=== PATIENT | male | born 1990 | race Caucasian/White ===

== ENCOUNTER 2018-02-22 23:08 | Emergency (ER) | payer BC, OTHER ==
[2018-02-22 23:16] VITALS: BP 162/97
[2018-02-22] MEDS ORDERED: Ondansetron 4 MG/2 ML SDV IVPUSH ONE (23:30)
[2018-02-22] MEDS ORDERED: fentaNYL 100 MCG/2 ML SDV IVPUSH ONE (23:30)
--- NOTE | 2018-02-22 23:34 | EDM.PDOC ---
ED HPI GENERAL MEDICAL PROBLEM - General Chief Complaint: Abdominal Pain Stated Complaint: ABDOMINAL PAIN Time Seen by Provider: 02/22/18 23:20 Source of Information: Reports: Patient, Family History Limitations: Reports: No Limitations - History of Present Illness INITIAL COMMENTS - FREE TEXT/NARRATIVE: 27-year-old male with intense lower left abdominal pain for the past 12-24 hours. It started with gastroenteritis with frequent diarrhea and nausea, but now is localized to intense spasm and pain in the left lower quadrant. No fevers or chills. He's been exposed to a lot of gastrointestinal illness in the family. I saw him 2 years ago in the emergency room for the exact same presentation, he responded to medication and his workup was negative at that time and it has not happened since. Denies any shortness of breath or cough, no recent trauma, denies drug use, drinks socially. He is not a smoker. Location: Reports: Abdomen Quality: Reports: Sharp, Stabbing Severity: Moderate Improves with: Reports: Other (Seems to be better after a bowel movement or vomiting, he feels better when he is "empty".) Associated Symptoms: Reports: No Other Symptoms left ABD Pain Score (Numeric/FACES): 10 - Related Data Allergies Allergy/AdvReac Type Severity Reaction Status Date / Time codeine Allergy Cannot Verified 02/22/18 23:17 Remember Home Meds: Home Meds NK [No Known Home Meds] 11/21/15 [History] Past Medical History - Past Health History Medical/Surgical History: Denies Medical/Surgical History Dermatologic History: Reports: Other (See Below) Other Dermatologic History: skin graft on back of knee Social & Family History - Tobacco Use Smoking Status *Q: Current Every Day Smoker Years of Tobacco use: 13 Packs/Tins Daily: 0.5 Used Tobacco, but Quit: No - Caffeine Use Caffeine Use: Reports: Soda - Alcohol Use Days Per Week of Alcohol Use: 2 Number of Drinks Per Day: 4 Total Drinks Per Week: 8 - Recreational Drug Use Recreational Drug Use: No ED ROS GENERAL - Review of Systems Review Of Systems: See Below Constitutional: Reports: Malaise. Denies: Fever, Chills HEENT: Reports: No Symptoms Respiratory: Denies: Shortness of Breath Cardiovascular: Denies: Chest Pain GI/Abdominal: Reports: Abdominal Pain, Diarrhea, Nausea, Vomiting : Reports: No Symptoms Skin: Reports: No Symptoms Neurological: Reports: No Symptoms ED EXAM, GI/ABD - Physical Exam Exam: See Below Exam Limited By: No Limitations General Appearance: Alert, Moderate Distress Eyes: Bilateral: Normal Appearance (No jaundice) Respiratory/Chest: No Respiratory Distress, Lungs Clear GI/Abdominal Exam: Normal Bowel Sounds, Soft, Tender (Reacts with tenderness to palpation along the left lower abdomen with moderate guarding but no rebound) Neurological: Alert, Oriented Psychiatric: Anxious Skin Exam: Warm, Dry Course - Vital Signs Last Recorded V/S: Last Vital Signs Temp 97.8 F 02/22/18 23:20 Pulse 79 02/22/18 23:20 Resp 18 02/22/18 23:20 BP 162/97 H 02/22/18 23:20 Pulse Ox 99 02/22/18 23:20 - Orders/Labs/Meds Orders: Active Orders 24 hr Category Date Time Status Abdomen Pelvis w Cont [CT] Stat Exams 02/23/18 00:21 Ordered Labs: Laboratory Tests 02/22/18 02/22/18 Range/Units 23:37 23:37 WBC 12.5 H (4.5-11.0) K/uL RBC 5.36 (4.30-5.90) M/uL Hgb 15.3 H (12.0-15.0) g/dL Hct 43.7 (40.0-54.0) % MCV 82 (80-98) fL MCH 29 (27-31) pg MCHC 35 (32-36) % Plt Count 346 (150-400) K/uL Neut % (Auto) 83 H (36-66) % Lymph % (Auto) 9 L (24-44) % [place] % (Auto) 8 H (2-6) % Eos % (Auto) 0 L (2-4) % Baso % (Auto) 0 (0-1) % ESR 8 (0-20) mm/hr Sodium 139 L (140-148) mmol/L Potassium 4.1 (3.6-5.2) mmol/L Chloride 100 (100-108) mmol/L Carbon Dioxide 28 (21-32) mmol/L Anion Gap 15.1 H (5.0-14.0) mmol/L BUN 13 (7-18) mg/dL Creatinine 1.0 (0.8-1.3) mg/dL Est Cr Clr Drug Dosing 115.58 mL/min Estimated GFR (MDRD) > 60 (>60) Glucose 123 H (74-106) mg/dL Calcium 8.8 (8.5-10.1) mg/dL Total Bilirubin 0.5 (0.2-1.0) mg/dL AST 19 (15-37) U/L ALT 28 (12-78) U/L Alkaline Phosphatase 70 (46-116) U/L Total Protein 7.7 (6.4-8.2) g/dL Albumin 4.2 (3.4-5.0) g/dL Globulin 3.5 (2.3-3.5) g/dL Albumin/Globulin Ratio 1.2 (1.2-2.2) Amylase 58 (25-115) U/L Lipase 139 (73-393) U/L Meds: Medications Discontinued Medications Generic Name Dose Route Start Last Admin Trade Name Freq PRN Reason Stop Dose Admin Fentanyl 100 mcg 02/22/18 23:30 02/22/18 23:37 Sublimaze IVPUSH 02/22/18 23:31 100 mcg ONETIME ONE Administration Sodium Chloride 1,000 mls @ 1,000 mls/hr 02/22/18 23:45 02/22/18 23:37 Normal Saline IV 1,000 mls/hr ASDIRECTED KILEY Administration Sodium Chloride 80 mls @ 3.5 mls/sec 02/23/18 00:40 02/23/18 00:41 Normal Saline IV 02/23/18 00:41 3.5 mls/sec ONETIME ONE Administration Iopamidol 100 ml 02/23/18 00:45 02/23/18 00:41 Isovue-300 (61%) IV 100 ml . DIRECTED KILEY Administration Ketorolac Tromethamine 30 mg 02/23/18 00:55 02/23/18 01:00 Toradol IVPUSH 02/23/18 00:56 30 mg ONETIME ONE Administration Ondansetron HCl 4 mg 02/22/18 23:30 02/22/18 23:36 Zofran IVPUSH 02/22/18 23:31 4 mg ONETIME ONE Administration Sodium Chloride 10 ml 02/23/18 00:40 02/23/18 00:41 Saline Flush FLUSH 02/23/18 00:41 10 ml ONETIME ONE Administration - Re-Assessments/Exams Free Text/Narrative Re-Assessment/Exam: 02/22/18 23:33 An IV will be started and the patient will be given 4 mg of Zofran, 100 g of fentanyl and a liter of normal saline. CBC, CMP, amylase and lipase will be obtained as well as a sedimentation rate. 02/23/18 01:43 Labs were all normal. Sedimentation rate was normal. CT scan with IV contrast was normal. While waiting for the CT results he was given 30 mg of IV Toradol because his pain was recurring. He was discharged with 10 doses of 1 mg Ativan to calm him down and take for bowel spasm. Departure - Departure Time of Disposition: 01:53 Disposition: Home, Self-Care 01 Condition: Good Clinical Impression: Gastroenteritis Abdominal pain Qualifiers: Abdominal location: left lower quadrant Qualified Code(s): R10.32 - Left lower quadrant pain - Discharge Information Instructions: Abdominal Pain, Adult, [id number] Referrals: PCP,None [Primary Care Provider] - Forms: ED Department Discharge Care Plan Goals: Just liquids for the next 12-24 hours until pain resolves. Use Ativan for bowel spasm if needed, as directed. - My Orders Last 24 Hours: My Active Orders 02/23/18 00:21 Abdomen Pelvis w Cont [CT] Stat - Assessment/Plan Last 24 Hours: My Active Orders 02/23/18 00:21 Abdomen Pelvis w Cont [CT] Stat
[2018-02-22] MEDS ORDERED: Sodium Chloride 0.9% 1,000 ML IV SCH (23:45)
[2018-02-23] MEDS ORDERED: Sodium Chloride 0.9% 80 ML IV ONE (00:40)
[2018-02-23] MEDS ORDERED: Sodium Chloride 0.9% 10 ML Syringe FLUSH ONE (00:40)
[2018-02-23] MEDS ORDERED: Iopamidol 612 MG/ML 100 ML Bottle IV SCH (00:45)
[2018-02-23] MEDS ORDERED: Ketorolac 30 MG/ML SDV IVPUSH ONE (00:55)
== END 2018-02-23 01:52 | disposition home or self-care (01) ==
LOC: JP.ED 23:08
DX: K52.9 Noninfective gastroenteritis and colitis, unspecified (principal); F17.210 Nicotine dependence, cigarettes, uncomplicated; Z88.5 Allergy status to narcotic agent
CPT/HCPCS: 36415; 74177; 80053; 82150; 83690; 85025; 85651; 96361; 96374; 96375; 99284; J1885; J2405; J3010; J7030; J7040; J7050; Q9967

== ENCOUNTER 2018-02-24 20:47 | Inpatient (IN) | payer OTHER ==
[2018-02-24] MEDS ORDERED: fentaNYL 100 MCG/2 ML SDV IVPUSH ONE (21:55)
[2018-02-24] MEDS ORDERED: Lactated Ringers 1,000 ML IV ONE ×2 (21:55→23:50)
[2018-02-24] MEDS ORDERED: Sodium Chloride 0.9% 10 ML Syringe FLUSH PRN (21:59)
[2018-02-24] MEDS ORDERED: Ondansetron 4 MG/2 ML SDV IVPUSH ONE (22:00)
--- NOTE | 2018-02-24 22:06 | EDM.PDOC ---
ED HPI GENERAL MEDICAL PROBLEM - General Chief Complaint: Abdominal Pain Stated Complaint: ABDOMINAL PAIN Time Seen by Provider: 02/24/18 22:03 Source of Information: Reports: Patient, Family, RN Notes Reviewed History Limitations: Reports: No Limitations - History of Present Illness INITIAL COMMENTS - FREE TEXT/NARRATIVE: 27-year-old gentleman presents to the emergency department today complaint of nausea vomiting and abdominal pain. He was evaluated in the emergency department 2 days ago for similar complaints workup at that time included blood work and CAT scan which were unrevealing to an etiology, etiology was thought to be gastroenteritis as the family has had similar illness however most everybody in the family has now recovered. He was discharged with Ativan for nausea and vomiting symptoms he is taken all that medication has vomited today, continues to have small amount of mucousy loose stools with flatus. No fevers no shortness of breath or chest pain Middle Abdomen Pain Score (Numeric/FACES): 7 - Related Data Allergies Allergy/AdvReac Type Severity Reaction Status Date / Time codeine Allergy Cannot Verified 02/22/18 23:17 Remember Home Meds: Home Meds LORazepam [Ativan] 0.5 mg PO Q6H PRN 02/24/18 [History] Past Medical History Dermatologic History: Reports: Other (See Below) Other Dermatologic History: skin graft on back of knee Social & Family History - Tobacco Use Smoking Status *Q: Never Smoker - Caffeine Use Caffeine Use: Reports: Soda - Alcohol Use Days Per Week of Alcohol Use: 2 Number of Drinks Per Day: 3 Total Drinks Per Week: 6 - Recreational Drug Use Recreational Drug Use: No ED ROS GENERAL - Review of Systems Review Of Systems: See Below Constitutional: Reports: Weakness. Denies: Fever, Chills HEENT: Reports: No Symptoms Respiratory: Reports: No Symptoms Cardiovascular: Reports: No Symptoms GI/Abdominal: Reports: Abdominal Pain, Diarrhea, Flatus, Nausea, Vomiting : Reports: No Symptoms Musculoskeletal: Reports: No Symptoms Skin: Reports: No Symptoms Neurological: Reports: No Symptoms ED EXAM, GI/ABD - Physical Exam Exam: See Below Text/Narrative:: General: Male, ill-appearing but not in distress, alert and oriented x3 HEENT: head is atraumatic normocephalic, eyes pupils equal round reactive to light, sclera clear no conjunctivitis appreciated. Ears tympanic membranes clear and de la cruz landmarks and light reflex are present bilaterally canals are clear. Nose no septal deviation, nares are clear, no blood present. Mouth mucosa is moist and pink no erythema or exudate noted in soft palate, tongue is midline uvula is midline, dentition is intact. Neck: Supple no thyromegaly no tracheal deviation. Nodes: Cervical nodes subclavicular nodes nontender no palpable lymphadenopathy noted. Lungs: clear to auscultation bilaterally with symmetrical respirations, no adventitious noise appreciated. CV: Regular rate and rhythm S1 and S2 appreciated no murmurs rubs or gallops noted. Abdomen: Soft, generalized tenderness to palpation, no palpable masses or organomegaly appreciated, no distention mild guarding, bowel sounds are present, . Neuro: Cranial nerves II through XII grossly intact Skin: Warm and dry, intact Extremities: No lower extremity edema appreciated, pedal pulse is +2. Course - Vital Signs Last Recorded V/S: Last Vital Signs Temp 99.7 F 02/24/18 21:22 Pulse 87 02/25/18 00:25 Resp 16 02/24/18 23:00 BP 108/56 L 02/25/18 00:25 Pulse Ox 97 02/25/18 00:25 - Orders/Labs/Meds Orders: Active Orders 24 hr Category Date Time Status Peripheral IV Care [RC] . DIRECTED Care 02/24/18 22:00 Active Abdomen 2V AP Flat Upright [CR] Stat Exams 02/24/18 21:59 Taken Abdomen Pelvis w Cont [CT] Stat Exams 02/25/18 00:01 Taken CULTURE STOOL + SHIGATOX [RM] Stat Lab 02/24/18 22:10 Ordered DRUG SCREEN, URINE [URCHEM] Stat Lab 02/24/18 23:40 Ordered UA W/MICROSCOPIC [URIN] Urgent Lab 02/24/18 23:40 Ordered WBC, STOOL [OP] Stat Lab 02/24/18 21:56 Ordered Sodium Chloride 0.9% [Saline Flush] Med 02/24/18 21:59 Active 10 ml FLUSH ASDIRECTED PRN Peripheral IV Insertion Adult [OM.PC] Urgent Oth 02/24/18 21:59 Ordered Medication Orders Sodium Chloride (Saline Flush) 10 ml FLUSH ASDIRECTED PRN PRN Reason: Keep Vein Open Last Admin: 02/24/18 22:38 Dose: 10 ml Labs: Laboratory Tests 02/24/18 02/24/18 02/24/18 Range/Units 22:11 22:11 22:11 WBC 22.1 H (4.5-11.0) K/uL RBC 5.15 (4.30-5.90) M/uL Hgb 14.5 (12.0-15.0) g/dL Hct 42.3 (40.0-54.0) % MCV 82 (80-98) fL MCH 28 (27-31) pg MCHC 34 (32-36) % Plt Count 319 (150-400) K/uL Neut % (Auto) 80 H (36-66) % Lymph % (Auto) 7 L (24-44) % [place] % (Auto) 13 H (2-6) % Eos % (Auto) 0 L (2-4) % Baso % (Auto) 0 (0-1) % Sodium 136 L (140-148) mmol/L Potassium 3.9 (3.6-5.2) mmol/L Chloride 98 L (100-108) mmol/L Carbon Dioxide 28 (21-32) mmol/L Anion Gap 13.9 (5.0-14.0) mmol/L BUN 8 (7-18) mg/dL Creatinine 1.0 (0.8-1.3) mg/dL Est Cr Clr Drug Dosing 115.58 mL/min Estimated GFR (MDRD) > 60 (>60) Glucose 103 (74-106) mg/dL Lactic Acid (0.4-2.0) mmol/L Calcium 8.7 (8.5-10.1) mg/dL Total Bilirubin 0.9 D (0.2-1.0) mg/dL AST 11 L (15-37) U/L ALT 20 (12-78) U/L Alkaline Phosphatase 62 (46-116) U/L Total Protein 7.2 (6.4-8.2) g/dL Albumin 3.5 (3.4-5.0) g/dL Globulin 3.7 H (2.3-3.5) g/dL Albumin/Globulin Ratio 1.0 L (1.2-2.2) Lipase 133 (73-393) U/L Urine Color Urine Appearance Urine pH (4.5-8.0) Ur Specific Spencer (1.008-1.030) Urine Protein (NEGATIVE) mg/dL Urine Glucose (UA) (NEGATIVE) mg/dL Urine Ketones (NEGATIVE) mg/dL Urine Occult Blood (NEGATIVE) Urine Nitrite (NEGAITVE) Urine Bilirubin (NEGATIVE) Urine Urobilinogen (NORMAL) mg/dL Ur Leukocyte Esterase (NEGATIVE) Urine RBC (0-5) Urine WBC (0-5) Ur Epithelial Cells Amorphous Sediment Urine Bacteria Urine Mucus Urine Opiates Screen (NEGATIVE) Ur Oxycodone Screen (NEGATIVE) Urine Methadone Screen (NEGATIVE) Ur Propoxyphene Screen (NEGATIVE) Ur Barbiturates Screen (NEGATIVE) Ur Tricyclics Screen (NEGATIVE) Ur Phencyclidine Scrn (NEGATIVE) Ur Amphetamine Screen (NEGATIVE) U Methamphetamines Scrn (NEGATIVE) Urine MDMA Screen (NEGATIVE) U Benzodiazepines Scrn (NEGATIVE) U Cocaine Metab Screen (NEGATIVE) U Marijuana (THC) Screen (NEGATIVE) 02/24/18 02/24/18 02/24/18 Range/Units 22:11 23:40 23:40 WBC (4.5-11.0) K/uL RBC (4.30-5.90) M/uL Hgb (12.0-15.0) g/dL Hct (40.0-54.0) % MCV (80-98) fL MCH (27-31) pg MCHC (32-36) % Plt Count (150-400) K/uL Neut % (Auto) (36-66) % Lymph % (Auto) (24-44) % [place] % (Auto) (2-6) % Eos % (Auto) (2-4) % Baso % (Auto) (0-1) % Sodium (140-148) mmol/L Potassium (3.6-5.2) mmol/L Chloride (100-108) mmol/L Carbon Dioxide (21-32) mmol/L Anion Gap (5.0-14.0) mmol/L BUN (7-18) mg/dL Creatinine (0.8-1.3) mg/dL Est Cr Clr Drug Dosing mL/min Estimated GFR (MDRD) (>60) Glucose (74-106) mg/dL Lactic Acid 1.9 (0.4-2.0) mmol/L Calcium (8.5-10.1) mg/dL Total Bilirubin (0.2-1.0) mg/dL AST (15-37) U/L ALT (12-78) U/L Alkaline Phosphatase (46-116) U/L Total Protein (6.4-8.2) g/dL Albumin (3.4-5.0) g/dL Globulin (2.3-3.5) g/dL Albumin/Globulin Ratio (1.2-2.2) Lipase (73-393) U/L Urine Color Yellow Urine Appearance Clear Urine pH 5.0 (4.5-8.0) Ur Specific [place] 1.025 (1.008-1.030) Urine Protein 30 H (NEGATIVE) mg/dL Urine Glucose (UA) Normal (NEGATIVE) mg/dL Urine Ketones Negative (NEGATIVE) mg/dL Urine Occult Blood Moderate (NEGATIVE) Urine Nitrite Negative (NEGAITVE) Urine Bilirubin Small (NEGATIVE) Urine Urobilinogen 1 (NORMAL) mg/dL Ur Leukocyte Esterase Negative (NEGATIVE) Urine RBC 0-5 (0-5) Urine WBC 0-5 (0-5) Ur Epithelial Cells Few Amorphous Sediment Not seen Urine Bacteria Few Urine Mucus Moderate Urine Opiates Screen Negative (NEGATIVE) Ur Oxycodone Screen Negative (NEGATIVE) Urine Methadone Screen Negative (NEGATIVE) Ur Propoxyphene Screen Negative (NEGATIVE) Ur Barbiturates Screen Negative (NEGATIVE) Ur Tricyclics Screen Negative (NEGATIVE) Ur Phencyclidine Scrn Negative (NEGATIVE) Ur Amphetamine Screen Negative (NEGATIVE) U Methamphetamines Scrn Negative (NEGATIVE) Urine MDMA Screen Negative (NEGATIVE) U Benzodiazepines Scrn Positive H (NEGATIVE) U Cocaine Metab Screen Negative (NEGATIVE) U Marijuana (THC) Screen Positive H (NEGATIVE) Meds: Medications Generic Name Dose Route Start Last Admin Trade Name Freq PRN Reason Stop Dose Admin Sodium Chloride 10 ml 02/24/18 21:59 02/24/18 22:38 Saline Flush FLUSH 10 ml ASDIRECTED PRN Administration Keep Vein Open Discontinued Medications Generic Name Dose Route Start Last Admin Trade Name Freq PRN Reason Stop Dose Admin Fentanyl 100 mcg 02/24/18 21:55 02/24/18 22:40 Sublimaze IVPUSH 02/24/18 21:56 100 mcg ONETIME ONE Administration Lactated Ringer's 1,000 mls @ 999 mls/hr 02/24/18 21:55 02/24/18 22:37 Ringers, Lactated IV 02/24/18 22:55 999 mls/hr BOLUS ONE Administration Lactated Ringer's 1,000 mls @ 999 mls/hr 02/24/18 23:50 02/25/18 00:04 Ringers, Lactated IV 02/25/18 00:50 999 mls/hr BOLUS ONE Administration Sodium Chloride 73 mls @ 3.3 mls/sec 02/25/18 00:05 02/25/18 00:14 Normal Saline IV 02/25/18 00:06 3.3 mls/sec ASDIRECTED STA Administration Iopamidol 100 ml 02/25/18 00:05 02/25/18 00:14 Isovue-300 (61%) IV 02/25/18 00:06 100 ml . DIRECTED STA Administration Ondansetron HCl 4 mg 02/24/18 22:00 02/24/18 22:46 Zofran IVPUSH 02/24/18 22:01 4 mg ONETIME ONE Administration Departure - Departure Time of Disposition: 01:17 Disposition: Admitted As Inpatient 66 Condition: Good Clinical Impression: Appendicitis Qualifiers: Appendicitis type: acute appendicitis Acute appendicitis type: with generalized peritonitis Qualified Code(s): K35.2 - Acute appendicitis with generalized peritonitis; K35.0 - Acute appendicitis with generalized peritonitis - Discharge Information Referrals: PCP,None [Primary Care Provider] - Forms: ED Department Discharge - My Orders Last 24 Hours: My Active Orders 02/24/18 21:56 WBC, STOOL [OP] Stat 02/24/18 21:59 Abdomen 2V AP Flat Upright [CR] Stat Sodium Chloride 0.9% [Saline Flush] 10 ml FLUSH ASDIRECTED PRN Peripheral IV Insertion Adult [OM.PC] Urgent 02/24/18 22:00 Peripheral IV Care [RC] . DIRECTED 02/24/18 22:10 CULTURE STOOL + SHIGATOX [RM] Stat 02/24/18 23:40 DRUG SCREEN, URINE [URCHEM] Stat UA W/MICROSCOPIC [URIN] Urgent 02/25/18 00:01 Abdomen Pelvis w Cont [CT] Stat - Assessment/Plan Last 24 Hours: My Active Orders 02/24/18 21:56 WBC, STOOL [OP] Stat 02/24/18 21:59 Abdomen 2V AP Flat Upright [CR] Stat Sodium Chloride 0.9% [Saline Flush] 10 ml FLUSH ASDIRECTED PRN Peripheral IV Insertion Adult [OM.PC] Urgent 02/24/18 22:00 Peripheral IV Care [RC] . DIRECTED 02/24/18 22:10 CULTURE STOOL + SHIGATOX [RM] Stat 02/24/18 23:40 DRUG SCREEN, URINE [URCHEM] Stat UA W/MICROSCOPIC [URIN] Urgent 02/25/18 00:01 Abdomen Pelvis w Cont [CT] Stat Plan: Assessment Acuity = acute Site and laterality = acute appendicitis Etiology = unclear etiology Manifestations = abdominal pain Location of injury = Home Lab values = WBC elevated at 22,000 consistent with leukocytosis, sodium low at 136 consistent hyponatremia, urinary screen positive for benzodiazepines and cannabis, CT scan described acute appendicitis Plan Called discussed case with Dr. Nixon general surgery who agreed, and evaluate the patient in the hospital for surgical intervention, plan to start Unasyn 3 g IV now This note was dictated using [employer] voice recognition software please call with any questions on syntax or grammar.
[2018-02-25] MEDS ORDERED: Iopamidol 612 MG/ML 100 ML Bottle IV STA (00:05)
[2018-02-25] MEDS ORDERED: Ampicillin/Sulbactam Na 3 GM in Sodium Chloride 0.9% 100 ML IV ONE (01:18)
[2018-02-25] MEDS ORDERED: Ondansetron 4 MG/2 ML SDV IV PRN (01:20)
[2018-02-25] MEDS ORDERED: fentaNYL 100 MCG/2 ML SDV IVPUSH PRN (01:22)
[2018-02-25] MEDS ORDERED: Lactated Ringers 1,000 ML IV SCH (01:30)
[2018-02-25] MEDS ORDERED: fentaNYL 250 MCG/5 ML SDV ONE ×2 (04:37→05:32)
[2018-02-25] MEDS ORDERED: Midazolam 1 MG/ML 2 ML SDV ONE (04:38)
[2018-02-25] MEDS ORDERED: Dexamethasone 4 MG/ML SDV ONE (04:42)
[2018-02-25] MEDS ORDERED: Neostigmine Methylsulfate 1 MG/ML 5 ML Syringe ONE (04:42)
[2018-02-25] MEDS ORDERED: Glycopyrrolate 0.2 MG/ML 5 ML MDV ONE (04:42)
[2018-02-25] MEDS ORDERED: Propofol 200 MG/20 ML SDV ONE (04:42)
[2018-02-25] MEDS ORDERED: Ondansetron 4 MG/2 ML SDV ONE (04:42)
[2018-02-25] MEDS ORDERED: Rocuronium 50 MG/5 ML Vial ONE (04:42)
[2018-02-25] MEDS ORDERED: Bupivacaine 0.5%/EPINEPHrine 1:200,000 50 ML MDV ONE (04:46)
[2018-02-25] MEDS ORDERED: Naloxone 0.4 MG/ML SDV IVPUSH PRN ×3 (04:58→07:47)
[2018-02-25] MEDS ORDERED: HYDROmorphone/Normal Saline 15 MG/30 ML PCA IV ONE (05:11)
[2018-02-25] MEDS ORDERED: Meropenem 500 MG SDV ONE (05:48)
[2018-02-25] MEDS: Ampicillin/Sulbactam Na 3 GM in Sodium Chloride 0.9% 100 ML IV SCH ×3 (07:41→20:21)
[2018-02-25] MEDS ORDERED: hydrOXYzine HCl 100 MG/2 ML SDV IM PRN (07:52)
[2018-02-25] MEDS ORDERED: Cyclobenzaprine 10 MG Tab PO PRN (07:53)
[2018-02-25] MEDS: Pantoprazole 40 MG Vial IV SCH (09:45)
[2018-02-25] MEDS: Dextrose 5%-Lactated Ringers 1,000 ML IV SCH ×2 (09:46→21:55)
--- NOTE | 2018-02-25 09:50 | CR ---
Abdomen 2V AP Flat Upright INDICATION: pain FINDINGS: Normal bowel gas pattern. No evidence for small bowel obstruction or free air. 7 mm density projected over the lower pole of the left kidney, only visualized on the supine. Exam otherwise nega tive.
[2018-02-25] MEDS ORDERED: Diphtheria/Tetanus Toxoids,Adult (Td) 0.5 ML SDV IM ONE (11:00)
[2018-02-25] MEDS: Aztreonam/Dextrose-Water 1 GM in Premix Bag 1 BAG IV SCH ×2 (11:18→19:23)
[2018-02-26] MEDS: Ampicillin/Sulbactam Na 3 GM in Sodium Chloride 0.9% 100 ML IV SCH ×4 (02:18→20:23)
[2018-02-26] MEDS: Aztreonam/Dextrose-Water 1 GM in Premix Bag 1 BAG IV SCH ×3 (03:03→18:34)
[2018-02-26] MEDS: HYDROmorphone/Normal Saline 15 MG/30 ML PCA IV PRN ×2 (03:11→16:40)
[2018-02-26] MEDS: Dextrose 5%-Lactated Ringers 1,000 ML IV SCH ×3 (03:16→23:37)
--- NOTE | 2018-02-26 08:23 | PN ---
DATE OF SERVICE: 02/26/2018 SUBJECTIVE: He is postop day #1. He has been up and ambulating in the lucas. Pain has been controlled. Afebrile. REVIEW OF SYSTEMS: Remainder of review of systems negative for any pertinent positives and negatives. OBJECTIVE: GENERAL: Arsenio Tamayo is a 27-year-old male. Alert and orientated. VITAL SIGNS: TPR 98.4, 87, 18, and blood pressure 136/83. HEENT: Negative. NECK: Supple. HEART: Regular rate and rhythm. LUNGS: Clear. ABDOMEN: Dressing dry and intact. Abdominal binder is on. EXTREMITIES: Without peripheral edema. ASSESSMENT: Laparoscopy turned to laparotomy for partial cystectomy and removal of attached appendix and drainage of pericolonic abscess for necrotic appendicitis with extensive necrosis to the base of cecum and pericolonic abscess. Date of surgery, 02/25/2018. PLAN: 1. Schedule and have consent signed for delayed primary closure on 02/27/2018, at 0715 hours, IV sedation, TAP block, Dereck Nixon MD. 2. Decrease IV to 100 mL per hour. 3. Good pulmonary toilet. 4. We will evaluate p.r.n. or in a.m. Iris Machado PA-C /[id number]
[2018-02-26] MEDS: Pantoprazole 40 MG Vial IV SCH (10:02)
[2018-02-26] MEDS: Nicotine 21 MG/24 Hr Patch TRDERM SCH (13:14)
[2018-02-27] MEDS: Ampicillin/Sulbactam Na 3 GM in Sodium Chloride 0.9% 100 ML IV SCH ×3 (01:40→14:08)
[2018-02-27] MEDS: Aztreonam/Dextrose-Water 1 GM in Premix Bag 1 BAG IV SCH ×2 (02:36→12:20)
[2018-02-27] MEDS ORDERED: Meropenem 500 MG SDV ONE (06:44)
[2018-02-27] MEDS ORDERED: Lidocaine 1% with EPINEPHrine 1:100,000 50 ML MDV ONE (06:45)
[2018-02-27] MEDS ORDERED: Bupivacaine 0.5% 50 ML MDV ONE (06:45)
[2018-02-27] MEDS ORDERED: Propofol 200 MG/20 ML SDV ONE (06:57)
[2018-02-27] MEDS ORDERED: fentaNYL 100 MCG/2 ML SDV ONE (06:57)
[2018-02-27] MEDS ORDERED: Midazolam 1 MG/ML 2 ML SDV ONE (06:57)
[2018-02-27] MEDS ORDERED: Ropivacaine 38 ML, Dexamethasone 8 MG, EPINEPHrine 0.4 MG, Sodium Chloride 0.9% 39.6 ML NERVRT SCH ×4 (07:30)
[2018-02-27] MEDS ORDERED: Lactated Ringers 1,000 ML ONE (07:44)
[2018-02-27] MEDS: Nicotine 21 MG/24 Hr Patch TRDERM SCH ×2 (08:51→14:22)
[2018-02-27] MEDS: Pantoprazole 40 MG Vial IV SCH (08:53)
[2018-02-27] MEDS: HYDROmorphone/Normal Saline 15 MG/30 ML PCA IV PRN (09:13)
[2018-02-27] MEDS: Bisacodyl 5 MG Tab PO SCH ×2 (10:42→20:03)
[2018-02-27] MEDS: Docusate Sodium 100 MG Cap PO SCH ×2 (10:42→20:03)
--- NOTE | 2018-02-27 10:51 | PN ---
DATE OF SERVICE: 02/27/2018 SUBJECTIVE: Arsenio is n.p.o. for delayed primary closure today. He has been up ambulating and pain has been controlled using the [employer]. He is passing flatus. REVIEW OF SYSTEMS: Remainder of review of systems negative for any pertinent positives and negatives. OBJECTIVE: GENERAL: Arsenio is a 27-year-old male. He is alert and orientated. VITAL SIGNS: TPR is 99.3, 92, 14, blood pressure 128/64. HEENT: Negative. NECK: Supple. HEART: Regular rate and rhythm. LUNGS: Clear. ABDOMEN: Dressings dry and intact. Abdominal binder is on. EXTREMITIES: Without peripheral edema. ASSESSMENT: Laparoscopy turned to laparotomy for partial cystectomy and removal of attached appendix and drainage of pericolonic abscess for necrotic appendicitis with extensive necrosis to the base of cecum and pericolonic abscess. Date of surgery 02/25/2018. PLAN: Orders to be written after delayed primary closure today. Iris Machado PA-C /[id number]
[2018-02-27] MEDS: Acetaminophen/oxyCODONE 325-5 MG Tab PO PRN ×2 (15:57→20:04)
[2018-02-27 19:21] VITALS: BP 132/73
--- NOTE | 2018-03-02 12:50 | OR ---
DATE OF PROCEDURE: 02/25/2018 PREOPERATIVE DIAGNOSIS: Acute appendicitis. POSTOPERATIVE DIAGNOSES: 1. Necrotic appendicitis, extension of necrosis on the base of cecum. 2. Pericolonic abscess. OPERATIVE PROCEDURES: Diagnostic laparoscopy converted to laparotomy with: 1. Partial cystectomy including removal of attached overlying appendix ([id number]). 2. Drainage of pericolonic abscess ([id number]). ANESTHESIA: General. INDICATION FOR PROCEDURE: This is a 27-year-old male presenting with a picture of acute appendicitis. Plan is to proceed with a diagnostic laparoscopy, laparotomy if necessary, and appendectomy with other procedures as indicated based on operative findings to be performed concurrently. Potential risks including bleeding, infection, leaks from various GI tract closures as well as possibility of cardiopulmonary, septic, or hemorrhagic complications leading to were discussed, and the patient wishes to proceed. DETAILS OF PROCEDURE: The patient was taken to the operating room. After general endotracheal anesthesia was induced, a Bonds catheter was inserted and the abdomen prepped and draped. In the abdominal wall, 3 fingerbreadths superior to the left of the umbilicus, a transverse incision was made and peritoneal cavity entered under direct vision with an Optiview trocar, inflated to 15 mmHg pressure with CO2 until no underlying trocar insertion site injuries were seen. Following this, 12 mm trocars were placed in the right upper quadrant as well as left lower quadrant, and the area around the base of the cecum was then examined. This was noted to be densely adherent to the adjacent structures. Laparoscopic dissection then began and it became evident that the procedure could not be safely completed laparoscopically as there appeared to be an extensive component of the appendix well down in the pelvis beyond the point where we could visualize what was being divided by a laparoscopic approach. Each of these trocars removed. The peritoneal cavity deflated. An oblique incision then was made in the right lower quadrant. This was a muscle-splitting incision. This was carried down through the full-thickness abdominal wall with primarily the muscles being rather than divided. Upon entering the area, an abscess adjacent to the cecum was identified. Cultures of this were obtained and the abscess cavity then evacuated. Using digital dissection, the appendix could eventually be mobilized up from the pelvis. The appendix itself was entirely necrotic and this necrosis extended somewhat onto the cecal base. Given this, the cecum was divided near its base with firings of the KAYLA purple load. This was done at the point where there was minimal edema of the cecal wall, as well as to provide a more satisfactory staple line. The ileocecal valve was carefully watched during the placement of kaden so as not to be occluded or narrowed by placement of the kaden. The mesentery to the attached cecum and appendix was then divided with Harmonic scalpel and the specimen then delivered from the field. At this point, the abdomen was irrigated with antibiotic-containing saline solution, a 10- Haitian round Garrick-Alford drain was placed through a stab wound superior to the main incision, draped across the cecal and division line and from there down into the pelvis. The peritoneum and musculature were then closed with serial layers of #1 Vicryl stitch. The skin and subcutaneous tissue were felt to be high risk for a wound infection if primary closure was undertaken. Given this, the wound was packed open for a planned delayed primary closure in 48 hours. The patient was taken to the recovery room in satisfactory condition. Dereck Nixon MD /[id number]
--- NOTE | 2018-03-02 12:50 | OR ---
DATE OF PROCEDURE: 02/27/2018 PREOPERATIVE DIAGNOSIS: Open abdominal incision. POSTOPERATIVE DIAGNOSIS: Open abdominal incision. OPERATIVE PROCEDURE: Delayed primary closure of open abdominal incision. ANESTHESIA: Local plus IV sedation. INDICATION FOR PROCEDURE: The patient is 48 hours status post a complicated appendectomy type procedure which there was appendiceal necrosis extending out of the cecum and a pericolonic abscess drained. Given this, the patient's skin and subcutaneous tissues were left open for a planned delayed primary closure at this point to minimize chances of early postoperative wound infection. Potential risks including bleeding and infection were reviewed, and the patient wishes to proceed. DETAILS OF PROCEDURE: The patient was taken to the operating room and placed in a supine position. IV sedation was administered, after which the operative dressing was taken down. The wound as well as the trocar sites were found to be clean. The abdomen was then prepped and draped and the primary incision in the right lower quadrant along with the trocar sites was anesthetized with 1% lidocaine mixed with Marcaine, then irrigated with meropenem- containing saline solution. The right lower quadrant incision was then closed with 2 layers of 3-0 and 4-0 Vicryl stitch deep and kaden for the skin. The trocar sites were then also closed with kaden. Dressing was applied and the patient was taken to the recovery room in satisfactory condition. Dereck iNxon MD /[id number]
--- NOTE | 2018-03-02 12:56 | DISCH ---
FINAL DIAGNOSES: 1. Necrotic appendicitis with extension of necrosis on the base of the appendix. 2. Pericolonic abscess. OPERATIVE PROCEDURES: 1. Diagnostic laparoscopy converted to laparotomy with: a. Partial cecectomy including removal of the attached appendix. b. Drainage of pericolonic abscess. 2. Delayed primary closure of abdominal incision which we had done on (02/27/2018). HOSPITAL COURSE: This is a 27-year-old male, who presented 2 days after initially being seen in the ER and having a negative CT scan with progressive right lower quadrant pain. CT scan at this time was confirmatory of appendicitis. The patient was admitted and IV antibiotics started. Patient underwent initial diagnostic laparoscopy on 02/25/2018 and the whole process was found to be too fixed and also extending deep into the pelvis to complete laparoscopically. Given this, the right lower quadrant incision was then made and the patient was noted to have a necrotic appendicitis draping well down into the depths of the pelvis. This was mobilized upward, and the patient was noted to have an extension of the necrosis onto the cecum. The partial cecectomy was therefore performed and pericolonic abscess drained. Postoperatively, the patient usually was kept n.p.o. He has progressed up to a regular diet and move his bowels. He also had a delayed primary closure of open abdominal incision on 02/27/2018. At the time of discharge, we will continue his home medications plus Augmentin 875 mg p.o. b.i.d. x5 days and then Percocet 5/325 one to two tablets q.4 hours p.r.n. pain #50. FOLLOWUP: With Iris Machado at [facility] on 03/06/2018.
== END 2018-02-27 22:00 | disposition home or self-care (01) | DRG 339 ==
LOC: JP.ED 20:47 → JP.MS 02-25 01:20
PROVIDERS: ADMIT Surgery; ATTEND Surgery
PROC: 0DTJ0ZZ Resection of Appendix, Open Approach (ICD-10-PCS; principal; 2018-02-25)
PROC: 0DBH0ZX Excision of Cecum, Open Approach, Diagnostic (ICD-10-PCS; 2018-02-25)
PROC: 0DJD4ZZ Inspection of Lower Intestinal Tract, Percutaneous Endoscopic Approach (ICD-10-PCS; 2018-02-25)
PROC: 0D9W0ZX Drainage of Peritoneum, Open Approach, Diagnostic (ICD-10-PCS; 2018-02-25)
PROC: 0WQF0ZZ Repair Abdominal Wall, Open Approach (ICD-10-PCS; 2018-02-27)
DX: K35.2 Acute appendicitis with generalized peritonitis (principal); K63.0 Abscess of intestine; Z53.31 Laparoscopic surgical procedure converted to open procedure; K35.80 Unspecified acute appendicitis; Z48.1 Encounter for planned postprocedural wound closure; Z88.5 Allergy status to narcotic agent; R82.99 Other abnormal findings in urine
CPT/HCPCS: 36415; 74019; 74019-26; 74177; 80053; 80305; 81001; 83605; 83690; 85025; 87070; 87075; 87077; 87186; 87205; 88304; 90714; 94762; 96361; 96374; 96375; 99285-25; A9270-GY; C9113; J0171; J0295; J1100; J1170; J2185; J2250; J2405; J2704; J2710; J2795; J3010; J3490; J7030; J7042; J7050; J7120; Q9967; S0073

== ENCOUNTER 2020-02-20 17:56 | Emergency (ER) | payer SELFPAY ==
[2020-02-20 18:16] VITALS: BP 125/62; PULSE 74
[2020-02-20] MEDS ORDERED: Bacitracin Oint 1 GM U/D Packet TOP ONE (18:19)
--- NOTE | 2020-02-20 18:20 | EDM.PDOC ---
ED HPI GENERAL MEDICAL PROBLEM - General Stated Complaint: LACERATION RIGHT CHEEK Time Seen by Provider: 02/20/20 18:20 Source of Information: Reports: Patient History Limitations: Reports: No Limitations - History of Present Illness INITIAL COMMENTS - FREE TEXT/NARRATIVE: 29-year-old male with an injury to his right cheek. Some type of spring or wench handle came loose returning and striking him on the right face. He has a 2-1/2 cm laceration on the right cheek. No other injury. No loss of consciousness. His tetanus is current. Onset: Sudden Duration: Hour(s): (Within the last 2 hours) Location: Reports: Face Associated Symptoms: Reports: No Other Symptoms - Related Data Allergies Allergy/AdvReac Type Severity Reaction Status Date / Time codeine Allergy Cannot Verified 02/20/20 18:26 Remember Home Meds: Home Meds NK [No Known Home Meds] 02/20/20 [History] Past Medical History - Past Health History Medical/Surgical History: Denies Medical/Surgical History Dermatologic History: Reports: Other (See Below) Other Dermatologic History: skin graft on back of knee Social & Family History - Caffeine Use Caffeine Use: Reports: Soda ED ROS GENERAL - Review of Systems Review Of Systems: See Below Constitutional: Denies: Fever, Chills HEENT: Denies: Vision Change Respiratory: Denies: Shortness of Breath Cardiovascular: Denies: Chest Pain GI/Abdominal: Denies: Nausea, Vomiting Skin: Reports: Other (Laceration on his right cheek) Neurological: Denies: Headache ED EXAM, SKIN/RASH Exam: See Below Exam Limited By: No Limitations General Appearance: Alert, No Apparent Distress Eye Exam: Bilateral Eye: EOMI Head: Other (Patient has a 2-1/2 cm transverse laceration right over the zygomatic arch on the right cheek. Underlying bone is nontender without deformity) Neck: Supple, Non-Tender Respiratory/Chest: No Respiratory Distress Course - Vital Signs Last Recorded V/S: Last Vital Signs Temp 96.6 F L 02/20/20 18:32 Pulse 74 02/20/20 18:32 Resp 16 02/20/20 18:32 BP 125/62 02/20/20 18:32 Pulse Ox 99 02/20/20 18:32 - Orders/Labs/Meds Meds: Medications Discontinued Medications Generic Name Dose Route Start Last Admin Trade Name Renu PRN Reason Stop Dose Admin Bacitracin 1 dose 02/20/20 18:19 02/20/20 18:26 Bacitracin Oint 1 Gm TOP 02/20/20 18:20 1 dose ONETIME ONE Administration Lidocaine HCl 5 ml 02/20/20 18:19 02/20/20 18:26 Xylocaine-Mpf 1% INJECT 02/20/20 18:20 5 ml ONETIME ONE Administration - Re-Assessments/Exams Free Text/Narrative Re-Assessment/Exam: 02/20/20 18:45 The area was anesthetized with 1% lidocaine, cleansed thoroughly with Hibiclens and saline, and six 6-0 Prolene sutures were used to close the laceration. A small amount of bacitracin and a Band-Aid was applied, the stitches can be removed in 5 days. Return sooner if concerns of infection or not healing satisfactorily. Departure - Departure Time of Disposition: 19:02 Disposition: Home, Self-Care 01 Clinical Impression: Laceration of face Qualifiers: Encounter type: initial encounter Qualified Code(s): S01.81XA - Laceration without foreign body of other part of head, initial encounter - Discharge Information Instructions: Laceration Care, Adult, [id number] Referrals: PCP,None [Primary Care Provider] - Forms: ED Department Discharge Care Plan Goals: Keep wound clean while healing, and sutures can be removed in 5 days. Recheck sooner if concerns of infection or not healing satisfactorily. Sepsis Event Note - Focused Exam Vital Signs: Vital Signs Temp Pulse Resp BP Pulse Ox 02/20/20 18:32 96.6 F L 74 16 125/62 99 02/20/20 18:14 96.6 F L 74 16 125/62 Date Exam was Performed: 02/20/20 Time Exam was Performed: 20:41
== END 2020-02-20 19:02 | disposition home or self-care (01) ==
LOC: JP.ED 17:56
DX: S01.81XA Laceration without foreign body of other part of head, initial encounter (principal); Z88.5 Allergy status to narcotic agent; W22.8XXA Striking against or struck by other objects, initial encounter
CPT/HCPCS: 12011; 99282; J2001

== ENCOUNTER 2021-07-10 11:46 | Emergency (ER) | payer SELFPAY ==
[2021-07-10 12:10] VITALS: BP 126/84; PULSE 70
--- NOTE | 2021-07-10 13:33 | EDM.PDOC ---
ED HPI GENERAL MEDICAL PROBLEM - General Chief Complaint: Respiratory Problem Stated Complaint: TIGHTNESS IN CHEST, FATIGUED, COUGH, Time Seen by Provider: 07/10/21 12:00 Source of Information: Reports: Patient, Family History Limitations: Reports: No Limitations - History of Present Illness INITIAL COMMENTS - FREE TEXT/NARRATIVE: pt has been sick for 4-5 days. His breathing is stable. He is eating and drinking ok. Onset: Gradual, Other (pt has been ill for several days. ) Duration: Day(s): Location: Reports: Chest, Other (pt has a cough but it is not severe. ) Associated Symptoms: Reports: Cough, Other (pt has good o2 sats. ) Chest Pain Score (Numeric/FACES): 4 - Related Data Allergies Allergy/AdvReac Type Severity Reaction Status Date / Time codeine Allergy Cannot Verified 07/10/21 12:10 Remember Home Meds: Home Meds NK [No Known Home Meds] 02/20/20 [History] Past Medical History - Past Health History Medical/Surgical History: Denies Medical/Surgical History HEENT History: Reports: None Cardiovascular History: Reports: None Respiratory History: Reports: None Genitourinary History: Reports: None Musculoskeletal History: Reports: None Neurological History: Reports: None Psychiatric History: Reports: None Endocrine/Metabolic History: Reports: None Hematologic History: Reports: None Immunologic History: Reports: None Oncologic (Cancer) History: Reports: None Dermatologic History: Reports: Other (See Below) Other Dermatologic History: skin graft on back of knee - Infectious Disease History Infectious Disease History: Reports: Chicken Pox, Novel Coronavirus - Past Surgical History GI Surgical History: Reports: Appendectomy Social & Family History - Tobacco Use Tobacco Use Status *Q: Former Tobacco User Used Tobacco, but Quit: Yes Month/Year Tobacco Last Used: 6mo - Caffeine Use Caffeine Use: Reports: Soda - Recreational Drug Use Recreational Drug Use: No ED ROS GENERAL - Review of Systems Review Of Systems: See Below Constitutional: Reports: No Symptoms HEENT: Reports: No Symptoms Respiratory: Reports: Cough, Other ( sensation of sob. ) Cardiovascular: Reports: No Symptoms Endocrine: Reports: No Symptoms GI/Abdominal: Reports: No Symptoms : Reports: No Symptoms Musculoskeletal: Reports: No Symptoms Skin: Reports: No Symptoms Neurological: Reports: No Symptoms ED EXAM, GENERAL - Physical Exam Exam: See Below Free Text/Narrative:: pt has been ill for 4-5 days. His father is on a resperator in [place]. Exam Limited By: No Limitations General Appearance: Alert, No Apparent Distress, Anxious Ears: Normal TMs Nose: Normal Inspection Throat/Mouth: Normal Inspection Head: Atraumatic Neck: Normal Inspection Respiratory/Chest: No Respiratory Distress, Other (pt is not wheezing or having resp distress. ) Cardiovascular: Regular Rate, Rhythm GI/Abdominal: Soft, Non-Tender (Male) Exam: Deferred Rectal (Males) Exam: Deferred Back Exam: Normal Inspection Extremities: Normal Inspection Course - Vital Signs Last Recorded V/S: Last Vital Signs Temp 37.0 C 07/10/21 12:06 Pulse 70 07/10/21 12:06 Resp 16 07/10/21 12:06 BP 126/84 07/10/21 12:06 Pulse Ox 97 07/10/21 12:06 - Orders/Labs/Meds Labs: Laboratory Tests 07/10/21 07/10/21 Range/Units 12:49 12:49 WBC 6.8 (4.5-11.0) K/uL RBC 5.74 (4.30-5.90) M/uL Hgb 15.9 H (12.0-15.0) g/dL Hct 46.2 (40.0-54.0) % MCV 81 (80-98) fL MCH 28 (27-31) pg MCHC 34 (32-36) % Plt Count 276 (150-400) K/uL Neut % (Auto) 60.4 (36-66) % Lymph % (Auto) 17.9 L (24-44) % [place] % (Auto) 20.8 H (2-6) % Eos % (Auto) 0.6 L (2-4) % Baso % (Auto) 0.3 (0-1) % Sodium 133 L (140-148) mmol/L Potassium 3.8 (3.6-5.2) mmol/L Chloride 99 L (100-108) mmol/L Carbon Dioxide 29 (21-32) mmol/L Anion Gap 8.8 (5.0-14.0) mmol/L BUN 11 (7-18) mg/dL Creatinine 1.0 (0.8-1.3) mg/dL Est Cr Clr Drug Dosing 112.54 mL/min Estimated GFR (MDRD) > 60 (>60) Glucose 81 (74-106) mg/dL Calcium 8.7 (8.5-10.1) mg/dL Total Bilirubin 0.3 D (0.2-1.0) mg/dL AST 21 D (15-37) U/L ALT 28 (12-78) U/L Alkaline Phosphatase 70 (46-116) U/L Total Protein 7.6 (6.4-8.2) g/dL Albumin 4.1 (3.4-5.0) g/dL Globulin 3.5 (2.3-3.5) g/dL Albumin/Globulin Ratio 1.2 (1.2-2.2) - Re-Assessments/Exams Free Text/Narrative Re-Assessment/Exam: 07/10/21 13:38 pt has a normal chem profile, hydration is adequeate. Departure - Departure Time of Disposition: 13:33 Disposition: Home, Self-Care 01 Condition: Fair Clinical Impression: COVID-19 - Discharge Information Referrals: PCP,None [Primary Care Provider] - Forms: ED Department Discharge Sepsis Event Note (ED) - Focused Exam Vital Signs: Vital Signs Temp Pulse Resp BP Pulse Ox 07/10/21 12:06 37.0 C 70 16 126/84 97
== END 2021-07-10 13:57 | disposition home or self-care (01) ==
LOC: JP.ED 11:46
DX: U07.1 COVID-19 (principal); Z87.891 Personal history of nicotine dependence; Z88.5 Allergy status to narcotic agent
CPT/HCPCS: 36415; 80053; 85025; 99281; 99284